=== PATIENT | female | born 1995 | race Two or more races ===

== ENCOUNTER 2016-07-02 13:42 | Emergency (ER) | payer MEDICAID ==
[~2016-07-02] VITALS: Ht 162.6 cm; Wt 56.2 kg
[2016-07-02 17:26] VITALS: BP 112/63
== END 2016-07-02 19:05 | disposition home or self-care (01) ==
LOC: ER 13:42
DX: S29.011A Strain of muscle and tendon of front wall of thorax, initial encounter (principal); S00.83XA Contusion of other part of head, initial encounter; Y08.89XA Assault by other specified means, initial encounter; Y93.89 Activity, other specified; Y99.8 Other external cause status; Y92.89 Other specified places as the place of occurrence of the external cause
CPT/HCPCS: 70110; 71020